=== PATIENT | female | born 1975 | race Caucasian/White ===

== ENCOUNTER → 2019-03-29 | Outpatient (CLI) | payer OTHER ==
--- NOTE | 2019-03-29 13:10 | CT ---
EXAM DESCRIPTION: Cervical Spine CLINICAL HISTORY: INTERVERTEBRAL DISC DISPLACEMENT COMPARISON: None Available. TECHNIQUE: Cervical CT is performed with thin-section axial imaging. MPRs are created and reviewed as well. FINDINGS: Axial bone window images reveal intact ring of C1. No abnormal widening of the atlantodens interval. No fracture of the vertebral bodies or transverse processes or posterior elements. Lung apices appear clear. No cervical mass or adenopathy. Sagittal reformatted images show reversal of the normal cervical lordosis. Otherwise normal alignment of vertebral bodies and facets. No jumped facet or facet fracture. Normal craniocervical alignment. No prevertebral soft tissue swelling. No avulsion of the spinous processes. Spondylosis: No posterior annular bulges or focal disc herniation. Neural foramina are widely patent. No facet hypertrophic spurring. Minimal anterior spurring at C4-5 and C5-6. No spinal stenosis. Degenerative narrowing at the atlantodens interval with superior spurring. Coronal reformatted images show normal atlantooccipital and atlantoaxial alignment. The base of the dens is intact as is the body of C2. Intact lateral masses. IMPRESSION: Reversal of the normal cervical lordosis. Mild anterior degenerative spurring at C4-5 and C5-6 with mild degenerative changes at the atlantodens interval. Negative for spinal stenosis or acute appearing disc herniation. This exam was performed according to our departmental dose-optimization program, which includes automated exposure control, adjustment of the mA and/or kV according to patient size and/or use of iterative reconstruction technique. Total DLP equals 461.32 mGycm. Electronically signed by: Jeremy Schwartz MD 03/29/2019 1:08 PM CDT
--- NOTE | 2019-03-29 13:15 | MRI ---
EXAM DESCRIPTION: Thoracic Spine w/o Contrast CLINICAL HISTORY: INTERVERTEBRAL DISC DISPLACEMENT COMPARISON: None Available. TECHNIQUE: MRI thoracic is performed according to our usual protocol. FINDINGS: Sagittal T2 images: Decreased disc signal intensity consistent disc desiccation at the T5-6 through T8-9 levels. There is mild loss of disc height at these levels as well. Normal vertebral body height. Normal T2 appearance of the thoracic spinal cord. No significant posterior discal abnormality or spinal stenosis. Sagittal T1 images: Benign marrow signal characteristics are noted. Prominent Schmorl's nodes in the superior endplates at T11 and T12 with lesser involvement of the inferior endplate of T8. Normal T1 appearance of the thoracic spinal cord. Normal descending thoracic aorta with no prevertebral mass. Sagittal STIR images: No high signal intensity within the vertebral bodies or posterior elements to suggest marrow edema. No paraspinous fluid collection or cystic lesion. Axial images were obtained to evaluate the lower thoracic disc levels. Normal posterior disc margins with no spinal stenosis or neural foraminal narrowing. No posterior mediastinal mass. No paraspinous mass or abnormality of the paraspinous musculature. Posterior medial ribs appear intact. IMPRESSION: MRI of the thoracic spine is negative for acute disc herniation, vertebral body compression or spinal stenosis. Electronically signed by: Jeremy Schwartz MD 03/29/2019 1:13 PM CDT
== END ==
LOC: MRI 10:35
PROVIDERS: ATTEND Orthopaedic Surgery Orthopaedic Surgery of the Spine
DX: M51.24 Other intervertebral disc displacement, thoracic region (principal); M48.02 Spinal stenosis, cervical region; M50.321 Other cervical disc degeneration at C4-C5 level; M50.322 Other cervical disc degeneration at C5-C6 level